=== PATIENT | male | born 1955 | race Caucasian/White ===

== ENCOUNTER 2018-10-26 13:55 | Emergency (ER) | payer SELFPAY ==
[~2018-10-26] VITALS: Ht 177.8 cm; Wt 85.0 kg
[~2018-10-26 13:55] MED LIST: CELEXA20 M1 PO; CITALOPRAM20 MG OR; ERYTHROMYCIN O3.5 GM OS; FLEXERIL10 MG PO; MEDDOSEPAK PO; NAPROSYN375 MG PO; NAPROSYN500 MG PO; NORVASC10 M1 OR; SYNTHROID75 MCG OR; TRAZODONE HCL100 MG OR
[2018-10-26 15:23] VITALS: BP 157/95
== END 2018-10-26 15:29 | disposition home or self-care (01) | DRG 301 ==
LOC: ED 13:55
DX: I83.892 Varicose veins of left lower extremity with other complications (principal); I10 Essential (primary) hypertension; E03.9 Hypothyroidism, unspecified; F17.220 Nicotine dependence, chewing tobacco, uncomplicated

== ENCOUNTER 2020-04-29 05:27 | Emergency (ER) | payer MEDICARE ==
[~2020-04-29] VITALS: Ht 177.8 cm; Wt 87.0 kg
[2020-04-29 05:59] VITALS: BP 170/98
[2020-04-29 06:05] LABS: HEMATOCRIT 39.8 % (39.0-50.0); IMMATURE GRANULOCYTES 0.5 % (0.0-5.0); MEAN CORPUSCULAR HGB 28.6 pG CALC (26.0-32.0); MEAN CORPUSCULAR HGB CONC 31.2 g/dL CAL (32.0-36.0); NEUT# 7.36 thou/uL (1.82-7.42); RED BLOOD COUNT 4.34 mill/uL (4.70-6.10); RED CELL DISTRI WIDTH 14.4 % (11.5-15.5)
[2020-04-29 06:06] LABS: HEMOGLOBIN 12.4 g/dl (14.0-18.0); MEAN CELL VOLUME 91.7 fL CALC (80.0-100.0)
[2020-04-29] MEDS ORDERED: METOPROL TAR25 MG PO (06:12)
[2020-04-29] MEDS ORDERED: LISINOPRIL5 MG PO (06:13)
[2020-04-29] MEDS ORDERED: LEVOTHYROXIN75 MCG PO (06:13)
[2020-04-29] MEDS ORDERED: CRESTOR10 MG PO (06:14)
[2020-04-29 06:27] LABS: ALBUMIN 4.1 g/dL (3.2-5.0); ALKALINE PHOSPHATASE 76 u/l (38-126); AMYLASE 58 u/l (30-110); ANION GAP 13 (6-22 (CALC)); BILIRUBIN, TOTAL 0.7 mg/dL (0.0-1.4); BUN 28 mg/dL (8-23); BUN/CREATININE RATIO 17 (12-20 (CALC)); CARBON DIOXIDE 25 mmol/l (22-30); CHLORIDE 103 mmol/l (95-108); CREATININE 1.6 mg/dL (0.7-1.3); GFR 44 ML/MIN (>=60 (CALC)); GFR FOR AFR.AMER. 53 ML/MIN (>=60 (CALC)); LIPASE 318 u/l (23-300); MAGNESIUM 2.4 mg/dL (1.6-2.3); SODIUM 137 mmol/l (137-146); TOTAL PROTEIN 7.3 g/dL (6.3-8.2)
[2020-04-29 06:29] LABS: ACT PARTIAL THROMBO TIME 22.3 SECONDS (20.0-32.5); PROTHROMBIN TIME 10.4 SECONDS (9.0-12.5); SGOT/AST 25 u/l (19-48)
[2020-04-29 06:33] LABS: D-DIMER 1.47 mg/L (0.19-0.60)
[2020-04-29 06:39] LABS: MYOGLOBIN 137 ng/mL (0 - 121)
[2020-04-29 06:58] LABS: TSH, 3RD GENERATION 4.02 uIU/mL (0.47 - 4.68)
[2020-04-29 08:06] LABS: URINE BILIRUBIN - DIPSTICK NEGATIVE (NEGATIVE); URINE BLOOD DIPSTICK NEGATIVE (NEGATIVE); URINE COLOR YELLOW; URINE GLUCOSE - DIPSTICK NEGATIVE (NEGATIVE); URINE KETONE NEGATIVE (NEGATIVE); URINE LEUK ESTERASE NEGATIVE (NEGATIVE); URINE PH 5.5 (4.5-8.0); URINE PROTEIN - DIPSTICK NEGATIVE (NEG-TRACE); URINE SPECIFIC GRAVITY >=1.030; URINE UROBILINOGEN - DIPSTICK 0.2 E.U./dL (0.2)
[2020-04-29 08:14] LABS: URINE NITRITE - DIPSTICK NEGATIVE (Negative)
== END 2020-04-29 08:38 | disposition left against medical advice (07) ==
LOC: ED 05:27
PROVIDERS: Family Medicine
DX: R07.9 Chest pain, unspecified (principal); R82.5 Elevated urine levels of drugs, medicaments and biological substances; R79.89 Other specified abnormal findings of blood chemistry; I10 Essential (primary) hypertension; E03.9 Hypothyroidism, unspecified; F17.200 Nicotine dependence, unspecified, uncomplicated; Y35.833A Legal intervention involving a conducted energy device, suspect injured, initial encounter; Y92.009 Unspecified place in unspecified non-institutional (private) residence as the place of occurrence of the external cause; Z91.19 Patient's noncompliance with other medical treatment and regimen

== ENCOUNTER 2020-05-06 20:44 | Emergency (ER) | payer MEDICARE ==
[~2020-05-06] VITALS: Ht 177.8 cm; Wt 89.0 kg
[~2020-05-06 20:44] MED LIST changes: +CRESTOR10 MG PO; +LEVOTHYROXIN75 MCG PO; +LISINOPRIL5 MG PO; +METOPROL TAR25 MG PO
[2020-05-06 21:54] LABS: HEMOGLOBIN 12.9 g/dl (14.0-18.0); IMMATURE GRANULOCYTES 0.8 % (0.0-5.0); MEAN CELL VOLUME 93.2 fL CALC (80.0-100.0); MEAN CORPUSCULAR HGB 29.3 pG CALC (26.0-32.0); MEAN CORPUSCULAR HGB CONC 31.5 g/dL CAL (32.0-36.0); NEUT# 5.28 thou/uL (1.82-7.42); RED BLOOD COUNT 4.4 mill/uL (4.70-6.10); RED CELL DISTRI WIDTH 14.6 % (11.5-15.5)
[2020-05-06 21:54] LABS: URINE BILIRUBIN - DIPSTICK NEGATIVE (NEGATIVE); URINE BLOOD DIPSTICK NEGATIVE (NEGATIVE); URINE COLOR YELLOW; URINE GLUCOSE - DIPSTICK NEGATIVE (NEGATIVE); URINE KETONE NEGATIVE (NEGATIVE); URINE LEUK ESTERASE NEGATIVE (NEGATIVE); URINE PH 5.5 (4.5-8.0); URINE PROTEIN - DIPSTICK NEGATIVE (NEG-TRACE); URINE SPECIFIC GRAVITY >=1.030; URINE UROBILINOGEN - DIPSTICK 0.2 E.U./dL (0.2)
[2020-05-06 21:55] LABS: URINE NITRITE - DIPSTICK NEGATIVE (Negative)
[2020-05-06 22:07] LABS: ALKALINE PHOSPHATASE 74 u/l (38-126); ANION GAP 12 (6-22 (CALC)); BILIRUBIN, TOTAL 0.7 mg/dL (0.0-1.4); BUN 26 mg/dL (8-23); BUN/CREATININE RATIO 16 (12-20 (CALC)); CARBON DIOXIDE 24 mmol/l (22-30); CHLORIDE 107 mmol/l (95-108); CREATININE 1.7 mg/dL (0.7-1.3); ETHYL ALCOHOL 0 mg/dl (0-30); GFR 41 ML/MIN (>=60 (CALC)); GFR FOR AFR.AMER. 49 ML/MIN (>=60 (CALC)); MAGNESIUM 2.1 mg/dL (1.6-2.3); POTASSIUM 4.4 mmol/l (3.5-5.1); SGOT/AST 27 u/l (19-48); SODIUM 139 mmol/l (137-146); TOTAL PROTEIN 7.2 g/dL (6.3-8.2)
[2020-05-06 22:24] VITALS: BP 147/79
== END 2020-05-06 22:25 | disposition home or self-care (01) ==
LOC: ED 20:44
PROVIDERS: Family Medicine
DX: F41.9 Anxiety disorder, unspecified (principal); F15.10 Other stimulant abuse, uncomplicated; I10 Essential (primary) hypertension; E03.9 Hypothyroidism, unspecified; F17.200 Nicotine dependence, unspecified, uncomplicated

== ENCOUNTER 2020-05-10 18:46 | Emergency (ER) | payer MEDICARE ==
[~2020-05-10] VITALS: Ht 91.4 cm; Wt 91.0 kg
[2020-05-10 19:23] LABS: HEMATOCRIT 40.3 % (39.0-50.0); HEMOGLOBIN 12.5 g/dl (14.0-18.0); IMMATURE GRANULOCYTES 0.5 % (0.0-5.0); MEAN CELL VOLUME 93.5 fL CALC (80.0-100.0); NEUT# 6.39 thou/uL (1.82-7.42); RED BLOOD COUNT 4.31 mill/uL (4.70-6.10); RED CELL DISTRI WIDTH 14.6 % (11.5-15.5)
[2020-05-10 19:40] LABS: ALBUMIN 4.2 g/dL (3.2-5.0); ALKALINE PHOSPHATASE 73 u/l (38-126); ANION GAP 11 (6-22 (CALC)); BILIRUBIN, TOTAL 0.6 mg/dL (0.0-1.4); BUN 21 mg/dL (8-23); BUN/CREATININE RATIO 12 (12-20 (CALC)); CARBON DIOXIDE 26 mmol/l (22-30); CHLORIDE 107 mmol/l (95-108); CREATININE 1.7 mg/dL (0.7-1.3); GFR 41 ML/MIN (>=60 (CALC)); GFR FOR AFR.AMER. 49 ML/MIN (>=60 (CALC)); LIPASE 195 u/l (23-300); POTASSIUM 4.2 mmol/l (3.5-5.1); SGOT/AST 29 u/l (19-48); SODIUM 139 mmol/l (137-146); TOTAL PROTEIN 7.5 g/dL (6.3-8.2)
[2020-05-10 19:52] LABS: MYOGLOBIN 140 ng/mL (0 - 121)
[2020-05-10 19:55] LABS: PROTHROMBIN TIME 10.4 SECONDS (9.0-12.5)
[2020-05-10 20:01] LABS: D-DIMER 0.79 mg/L (0.19-0.60)
[2020-05-10 22:13] LABS: URINE BILIRUBIN - DIPSTICK NEGATIVE (NEGATIVE); URINE BLOOD DIPSTICK NEGATIVE (NEGATIVE); URINE COLOR YELLOW; URINE GLUCOSE - DIPSTICK NEGATIVE (NEGATIVE); URINE KETONE NEGATIVE (NEGATIVE); URINE LEUK ESTERASE NEGATIVE (NEGATIVE); URINE PH 5.5 (4.5-8.0); URINE PROTEIN - DIPSTICK NEGATIVE (NEG-TRACE); URINE SPECIFIC GRAVITY >=1.030; URINE UROBILINOGEN - DIPSTICK 0.2 E.U./dL (0.2)
[2020-05-10 22:14] LABS: URINE NITRITE - DIPSTICK NEGATIVE (Negative)
[2020-05-10 22:45] VITALS: BP 161/85
== END 2020-05-10 22:15 ==
LOC: ED 18:46
PROVIDERS: Family Medicine
DX: R07.89 Other chest pain (principal); F15.10 Other stimulant abuse, uncomplicated; I10 Essential (primary) hypertension; E03.9 Hypothyroidism, unspecified; F17.200 Nicotine dependence, unspecified, uncomplicated
CPT/HCPCS: Q9967

== ENCOUNTER 2021-09-03 18:55 | Emergency (ER) | payer MEDICARE ==
[2021-09-03] VITALS (7 sets, daily range): BP systolic 153–169; BP diastolic 77–110
[~2021-09-03] VITALS: Ht 116.8 cm; Wt 84.0 kg
[2021-09-03 20:16] LABS: HEMOGLOBIN 13.6 g/dl (14.0-18.0); IMMATURE GRANULOCYTES 0.4 % (0.0-5.0); MEAN CELL VOLUME 89.9 fL CALC (80.0-100.0); MEAN CORPUSCULAR HGB 29.1 pG CALC (26.0-32.0); MEAN CORPUSCULAR HGB CONC 32.4 g/dL CAL (32.0-36.0); NEUT# 3.26 thou/uL (1.82-7.42); RED BLOOD COUNT 4.67 mill/uL (4.70-6.10); RED CELL DISTRI WIDTH 14.5 % (11.5-15.5)
[2021-09-03 20:28] LABS: ALBUMIN 3.7 g/dL (3.2-5.0); ALKALINE PHOSPHATASE 93 u/l (38-126); ANION GAP 12 (6-22 (CALC)); BUN 18 mg/dL (8-23); BUN/CREATININE RATIO 15 (12-20 (CALC)); CARBON DIOXIDE 23 mmol/l (22-30); CHLORIDE 106 mmol/l (95-108); CREATININE 1.2 mg/dL (0.7-1.3); GFR FOR AFR.AMER. > 60 ML/MIN (>=60 (CALC)); GFR OTHER RACES > 60 ML/MIN (>=60 (CALC)); POTASSIUM 3.8 mmol/l (3.5-5.1); SGOT/AST 25 u/l (19-48); SODIUM 136 mmol/l (137-146); TOTAL PROTEIN 6.7 g/dL (6.3-8.2)
[2021-09-03 20:29] LABS: BILIRUBIN, TOTAL 0.2 mg/dL (0.0-1.4)
[2021-09-03] MEDS ORDERED: PAXLOVID PO (20:59)
[2021-09-03] MEDS ORDERED: AMOXICILLIN500 MG PO (20:59)
== END 2021-09-03 21:20 | disposition home or self-care (01) ==
LOC: ED 18:55
PROVIDERS: Emergency Medicine
DX: U07.1 COVID-19 (principal); J02.0 Streptococcal pharyngitis; I10 Essential (primary) hypertension; E03.9 Hypothyroidism, unspecified; F17.200 Nicotine dependence, unspecified, uncomplicated

== ENCOUNTER 2024-03-22 19:59 | Observation (INO) | payer MEDICARE ==
[~2024-03-22] VITALS: Ht 175.3 cm; Wt 80.1 kg
[2024-03-22] VITALS (7 sets, daily range): BP systolic 108–137; BP diastolic 61–80
[~2024-03-22 19:59] MED LIST changes: +AMOXICILLIN500 MG PO; +PAXLOVID PO
[2024-03-22] MEDS ORDERED: ACETAMINOPHEN 325 MG/TAB PO ONE (20:20)
[2024-03-22 20:42] LABS: BASO% 0.5 % (0-3); EOS% 0.9 % (0-8); IMMATURE GRANULOCYTES 0.5 % (0.0-5.0); LYMPH% 4.5 % (15-41); MEAN CORPUSCULAR HGB 26.1 pG CALC (26.0-32.0); MEAN CORPUSCULAR HGB CONC 30.8 g/dL CAL (32.0-36.0); MONO% 15.5 % (2-13); NEUT# 5.2 thou/uL (1.82-7.42); NEUT% 78.1 % (42-76); RED BLOOD COUNT 3.8 mill/uL (4.70-6.10); RED CELL DISTRI WIDTH 14.6 % (11.5-15.5)
[2024-03-22 20:45] LABS: HEMATOCRIT 32.1 % (39.0-50.0); HEMOGLOBIN 9.9 g/dl (14.0-18.0); MEAN CELL VOLUME 84.5 fL CALC (80.0-100.0)
[2024-03-22 20:50] LABS: ALBUMIN 3.5 g/dL (3.2-5.0); CREATININE 1.3 mg/dL (0.7-1.3); POTASSIUM 3.6 mmol/l (3.5-5.1); TOTAL PROTEIN 7.2 g/dL (6.3-8.2)
[2024-03-22 20:57] LABS: BILIRUBIN, TOTAL 0.6 mg/dL (0.2-1.3)
[2024-03-22] MEDS ORDERED: DOXYCYCLINE HYCLATE 100 MG in SODIUM CHLORIDE 0.9% 100 ML IV SCH (21:40)
[2024-03-22] MEDS ORDERED: IPRATROPIUM-Albuterol 0.5MG-2.5MG/3 ML NEB PRN (21:40)
[2024-03-22] MEDS ORDERED: CEFEPIME HYDROCHLORIDE 2 GM in SODIUM CHLORIDE 0.9% 100 ML IV SCH (21:40)
[2024-03-22] MEDS ORDERED: Polyethylene Glycol 3350 17 GM/PKT PO PRN (21:45)
[2024-03-22] MEDS ORDERED: ONDANSETRON 4 MG/TAB ODT SL PRN (21:45)
[2024-03-22] MEDS ORDERED: SODIUM CHLORIDE 0.9% 1,000 ML IV PRN (21:45)
[2024-03-22] MEDS ORDERED: ACETAMINOPHEN 325 MG/TAB PO PRN (21:45)
[2024-03-22 21:59] LABS: CHOLESTEROL HDL RATIO 2.8 (<4.4 (CALC))
[2024-03-22 22:30] LABS: TSH, 3RD GENERATION 2.98 uIU/mL (0.47 - 4.68)
[2024-03-23 04:16] VITALS: BP 123/69
[2024-03-23 07:41] VITALS: BP 103/63
[2024-03-23 08:37] LABS: BASO% 0.3 % (0-3); HEMATOCRIT 36.7 % (39.0-50.0); HEMOGLOBIN 11.3 g/dl (14.0-18.0); IMMATURE GRANULOCYTES 0.3 % (0.0-5.0); MEAN CELL VOLUME 84.4 fL CALC (80.0-100.0); MEAN CORPUSCULAR HGB CONC 30.8 g/dL CAL (32.0-36.0); MONO% 14.7 % (2-13); NEUT# 4.34 thou/uL (1.82-7.42); NEUT% 73.7 % (42-76); RED BLOOD COUNT 4.35 mill/uL (4.70-6.10); RED CELL DISTRI WIDTH 14.7 % (11.5-15.5)
[2024-03-23 08:56] LABS: ALBUMIN 3.2 g/dL (3.2-5.0); BILIRUBIN, TOTAL 0.6 mg/dL (0.2-1.3); CREATININE 1.2 mg/dL (0.7-1.3); MAGNESIUM 2.1 mg/dL (1.6-2.3); TOTAL PROTEIN 6.6 g/dL (6.3-8.2)
[2024-03-23] MEDS ORDERED: OSELTAMIVIR PHOSPHATE 75 MG/TAB CAP PO SCH (09:00)
[2024-03-23] MEDS ORDERED: CLARIFY DOSE PO SCH (09:00)
[2024-03-23] MEDS ORDERED: methylPREDNISolone Sod Succ 40 MG/ML SDV IV SCH (09:00)
[2024-03-23 09:28] LABS: POTASSIUM 4.4 mmol/l (3.5-5.1)
[2024-03-23] MEDS ORDERED: ENOXAPARIN SODIUM 40 MG/0.4 ML SYR SC SCH (21:00)
== END 2024-03-23 10:26 | disposition left against medical advice (07) ==
LOC: ED 19:59 → ED-I 21:00 → ED 21:38 → MS2 21:39
PROVIDERS: Family Medicine; ADMIT Internal Medicine; ATTEND Internal Medicine
DX: J10.1 Influenza due to other identified influenza virus with other respiratory manifestations (principal); T59.811A Toxic effect of smoke, accidental (unintentional), initial encounter; I10 Essential (primary) hypertension; E03.9 Hypothyroidism, unspecified; Y92.029 Unspecified place in mobile home as the place of occurrence of the external cause; Z87.891 Personal history of nicotine dependence; Z20.822 Contact with and (suspected) exposure to COVID-19
CPT/HCPCS: J0692

== ENCOUNTER 2024-03-27 06:08 | Emergency (ER) | payer MEDICARE ==
[2024-03-27] VITALS (8 sets, daily range): BP systolic 123–145; BP diastolic 77–86
[~2024-03-27] VITALS: Ht 175.3 cm; Wt 81.0 kg
[2024-03-27] MEDS ORDERED: KETOROLAC TROMETHAMINE 30 MG/ML SDV IV ONE (07:30)
[2024-03-27] MEDS ORDERED: SODIUM CHLORIDE 0.9% 1,000 ML IV ONE (07:30)
[2024-03-27 08:44] LABS: BASO% 0.7 % (0-3); EOS% 0.4 % (0-8); HEMATOCRIT 36.9 % (39.0-50.0); HEMOGLOBIN 11.3 g/dl (14.0-18.0); IMMATURE GRANULOCYTES 0.7 % (0.0-5.0); LYMPH% 32.4 % (15-41); MEAN CELL VOLUME 84.1 fL CALC (80.0-100.0); MEAN CORPUSCULAR HGB 25.7 pG CALC (26.0-32.0); MEAN CORPUSCULAR HGB CONC 30.6 g/dL CAL (32.0-36.0); MONO% 13.4 % (2-13); NEUT# 1.49 thou/uL (1.82-7.42); NEUT% 52.4 % (42-76); RED BLOOD COUNT 4.39 mill/uL (4.70-6.10); RED CELL DISTRI WIDTH 14.8 % (11.5-15.5)
[2024-03-27 09:10] LABS: ALBUMIN 3.3 g/dL (3.2-5.0); BILIRUBIN, TOTAL 0.4 mg/dL (0.2-1.3); CREATININE 1.2 mg/dL (0.7-1.3); POTASSIUM 3.6 mmol/l (3.5-5.1); TOTAL PROTEIN 6.8 g/dL (6.3-8.2)
[2024-03-27] MEDS ORDERED: TAM75CAP PO (10:27)
[2024-03-27] MEDS ORDERED: IBUPROFEN600 MG PO (10:27)
== END 2024-03-27 10:48 | disposition home or self-care (01) ==
LOC: ED 06:08
PROVIDERS: Emergency Medicine
DX: J10.1 Influenza due to other identified influenza virus with other respiratory manifestations (principal); I10 Essential (primary) hypertension; E03.9 Hypothyroidism, unspecified
CPT/HCPCS: J1100

== ENCOUNTER 2024-04-12 00:45 | Emergency (ER) | payer MEDICARE ==
[~2024-04-12] VITALS: Ht 175.3 cm; Wt 84.0 kg
[~2024-04-12 00:45] MED LIST changes: +IBUPROFEN600 MG PO; +TAM75CAP PO
[2024-04-12] MEDS ORDERED: NEOMYCIN-BACITRACIN-POLYMYXIN 0.5 GM/PAK PAK TOP ONE (01:20)
[2024-04-12] MEDS ORDERED: POVIDONE IODINE 0.5 OZ/BTL TOP ONE (01:20)
[2024-04-12] MEDS ORDERED: Diph, Acellular Pertussis, Tet 0.5 ML/VIAL (Tdap) SDV IM ONE (01:20)
[2024-04-12 01:40] VITALS: BP 162/99
== END 2024-04-12 01:43 | disposition home or self-care (01) ==
LOC: ED 00:45
DX: S00.212A Abrasion of left eyelid and periocular area, initial encounter (principal); I10 Essential (primary) hypertension; E03.9 Hypothyroidism, unspecified; W01.0XXA Fall on same level from slipping, tripping and stumbling without subsequent striking against object, initial encounter; Y93.K1 Activity, walking an animal; Y92.009 Unspecified place in unspecified non-institutional (private) residence as the place of occurrence of the external cause
CPT/HCPCS: 90715